=== PATIENT | male | born 1980 | race Caucasian/White ===

== ENCOUNTER 2024-07-17 09:10 | Inpatient (IN) | payer SELFPAY ==
[2024-07-17] VITALS (47 sets, daily range): BP systolic 131–182; BP diastolic 82–131; PULSE 64–112; RESP 11–23; TEMP 36.4–36.8; O2SAT 92–98; BMI 31.5; BMI 30.9
--- NOTE | 2024-07-17 09:25 | CT_ITS ---
WS: [id number] CTA HEAD AND NECK TECHNIQUE: Contrast enhanced CTA of the head and neck with coronal and sagittal reformatted images an d maximum intensity projection (MIP) images. NASCET criteria utilized. CLINICAL INFORMATION: Acute left-sided CVA COMPARISON: None. DLP: 555.[address] scans at [facility] use at least one of these dose optimization techniques: automated e xposure control; mA and/or kV adjustment per patient size (includes targeted exams where dose is matc hed to clinical indication); or iterative reconstruction. FINDINGS: RIGHT: RIGHT common carotid artery is patent. No significant RIGHT ICA stenosis. RIGHT ICA is patent to the skull base. LEFT: LEFT common carotid artery is patent. No significant LEFT ICA stenosis. LEFT ICA is patent to t he skull base. Codominant and patent vertebral arteries bilaterally. Normal vascularity to the [address] [employer] territory bilater ally. Both ICAs are patent at the skull base. Normal vascularity to the JAH and MCA territories bilaterally . No evidence of proximal flow-limiting stenosis or aneurysm. Patent anterior communicating artery. S ome images degraded by venous contamination. Lung apices are well aerated. Normal caliber thoracic aorta. A few tiny thyroid nodules. Mild spondyl itic changes cervical spine. CT/CT angio headneck* [id number] IMPRESSION: 1. No significant cervical ICA stenosis 2. Codominant and patent vertebral arteries. 3. No flow-limiting intracranial stenosis.
--- NOTE | 2024-07-17 09:25 | XRR_ITS ---
PROCEDURE INFORMATION: Exam: XR Chest Exam date and time: 07/17/2024 9:42 AM Age: 44 years old Clinical indication: Other: Left sided weakness; Additional info: Acute CVA TECHNIQUE: Imaging protocol: Radiologic exam of the chest. Views: 1 view. COMPARISON: CT angio headneck* [id number] 07/17/2024 9:34 AM FINDINGS: Lungs: Unremarkable. No consolidation or mass. Pleural spaces: Unremarkable. No pleural effusion. No pneumothorax. Heart/Mediastinum: Unremarkable. No cardiomegaly. Bones/joints: Unremarkable. XR/XR chest 1V portable [id number] IMPRESSION: No acute findings.
--- NOTE | 2024-07-17 09:26 | CT_ITS ---
WS: [id number] CT HEAD TECHNIQUE: Noncontrast CT of the head obtained from the skullbase to the vertex. CLINICAL INFORMATION: Symptoms of acute stroke COMPARISON: None. DLP: [address] scans at [facility] use at least one of these dose optimization techniques: automated e xposure control; mA and/or kV adjustment per patient size (includes targeted exams where dose is matc hed to clinical indication); or iterative reconstruction. FINDINGS: No evidence of intracranial hemorrhage or mass effect. Ventricular system and basal cisterns are jacobo nt. No extra-axial fluid collections. No evidence of mass or mass effect. Normal liu-white different iation. Mild mucosal thickening in the ethmoid air cells. Mastoid air cells are well aerated. CT/CT head thrombolytic [id number] IMPRESSION: 1. No evidence of intracranial hemorrhage or mass effect. 2. No acute intracranial findings. Notified Chris Bro DO at 07/17/2024 9:36 AM.
--- NOTE | 2024-07-17 09:26 | ECG_ITS ---
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 Measurements Intervals [place] Rate: 91 P: 59 KS: 158 QRS: 17 QRSD: 93 T: 19 QT: 346 QTc: 427 Interpretive Statements SINUS RHYTHM POSSIBLE LEFT ATRIAL ENLARGEMENT [-0.1mV P-WAVE IN V1/V2] No previous ECG available for comparison Electronically Signed On 07-17-2024 23:03:35 CDT by Purnima Castañeda M.D. [email or web address]
--- NOTE | 2024-07-17 09:27 | ED_ITS ---
HPI - Neuro Symptoms/Deficit 2 General: Chief Complaint: Neuro Symptoms/Deficit Stated Complaint: stroke like symptoms Time Seen by Provider: 07/17/24 09:12 History of Present Illness: 44-year-old male presents emergency room complaining of weakness on his right side his symptoms began last night. States his left arm and leg feel like they are asleep no previous history of stroke he is not on anticoagulants his last known well was 8 PM last evening presents today at around 910. He denies any chest pain. No difficulty speech swallowing or vision is initial NIH is 3 Associated symptoms: Deny chest pain Related Data Home Medications Medication Instructions Recorded Confirmed No Known Home Medications 07/17/24 07/17/24 Allergies Allergy/AdvReac Type Severity Reaction Status Date / Time No Known Allergies Allergy Verified 07/17/24 09:20 Review of Systems 2 Const: Denies: fever(s) or chills Card: Denies: chest pain Resp: Denies: dyspnea GI: Denies: abdominal pain : Denies: dysuria, urinary frequency or urinary urgency Musc: Denies: neck pain or back pain Skin/Breast: Denies: rash PFSH ED 2 PFSH: Medical History (Updated 07/17/24 @ 13:55 by Chris Bro DO) DJD (degenerative joint disease) Chronic back pain Tobacco dependence Family History Other CAD (coronary artery disease) Diabetes Social History (Updated 07/17/24 @ 12:09 by Primo Santoyo MD) Smoking and tobacco/nicotine status: current every day tobacco/nicotine user Alcohol intake: former Substance/Drug Use: former NIH stroke score 2 NIHSS: Level Of Consciousness - 1a: 0 Level Of Consciousness Questions - 1b: Both Correct Level Of Consciousness Commands - 1c: Both Correct Best Gaze - 2: Normal Visual Gutierrez - 3: No Visual Loss Facial Palsy - 4: N ormal Motor Arm Right - 5: No Drift Motor Arm Left - 5: Drift Motor Leg Right - 6: No Drift Motor Leg Left - 6: Drift Limb Ataxia - 7: Absent S ensory - 8: Mild To Moderate Loss Best Language - 9: No Aphasia Dysarthia - 10: Normal Extinction And Inattention - 11: 0 Score: Total Score: 3 Physical Exam 2 Const: COMMON NORMALS: no acute distress GENERAL APPEARANCE: cooperative and comfortable ORIENTATION/CONSCIOUSNESS: Yes awake, Yes oriented to person, Yes oriented to place and Yes oriented to time HENMT: COMMON NORMALS: normocephalic, atraumatic and hearing grossly normal bilaterally HEAD & SCALP: normocephalic and atraumatic Resp: COMMON NORMALS: normal respiratory effort, No retractions, No use of accessory muscles and clear to auscultation bilaterally AUSCULTATION: clear to auscultation bilaterally Cardio: COMMON NORMALS: regular rate, regular rhythm and No murmurs present (Cardio) RATE: regular rate RHYTHM: regular rhythm GI: COMMON NORMALS: Soft to palpation and No hepatosplenomegaly present A USCULTATION: Yes normoactive bowel sounds PALPATION: Yes Soft to palpation, No Tenderness to palpation present (GI), No Guarding due to palpation present (GI) and Yes No hepatosplenomegaly present Extremity: COMMON NORMALS: normal to inspection, capillary refill normal, no clubbing, cyanosis or edema, no calf tenderness and no pedal edema OTHER: Slight drift in left arm and leg decreased sensation in the left side compared to the right medical and health services manager strengths are equal bilaterally follows all commands without difficulty. Neuro: SENSORIUM/ORIENTATION: Yes oriented to person, Yes oriented to place and Yes oriented to time Skin: COMMON NORMALS: no rashes or lesions noted GENERAL SKIN EXAM: no rashes or lesions noted Course 2 Vital Signs: Vital signs: Vital Signs Temperature 98.2 F 07/17/24 09:14 Pulse Rate 76 07/17/24 13:21 Respiratory Rate 16 07/17/24 13:00 Blood Pressure 176/109 07/17/24 13:19 Pulse Oximetry 98 07/17/24 13:19 Oxygen Delivery Me thod Room Air 07/17/24 12:25 MDM - Neuro Symptoms/Deficit Medical Decision Making Patient initially presented stroke score of 3 he is outside the window for any intervention for either thrombolytics or embolectomy. Discussed Dr. Sen who is on-call for stroke. CT of the head and CTA head and neck did not show any acute abnormalities. Symptoms seem to wax and wane a little bit but he never got significantly worse to consider any intervention. Will admit for acute CVA. Discussed Dr. Santoyo orders written Medical Records I reviewed the patient's medical records. Lab Data I reviewed the patient's lab results. 07/17/24 09:35 07/17/24 09:35 Radiology Impressions Chest X-Ray 07/17/24 09:25 IMPRESSION: No acute findings. Head/Neck CTA 07/17/24 09:25 IMPRESSION: 1. No significant cervical ICA stenosis 2. Codominant and patent vertebral arteries. 3. No flow-limiting intracranial stenosis. Head CT 07/17/24 09:26 IMPRESSION: 1. No evidence of intracranial hemorrhage or mass effect. 2. No acute intracranial findings. Notified Chris Bro DO at 07/17/2024 9:36 AM. Laboratory Results WBC 9.30 10^3/uL (3.29-11.43) 07/17/24 09:35 RBC 5.90 10^6/uL (3.85-5.65) H 07/17/24 09:35 Hgb 17.40 g/dL (11.27-16.99) H 07/17/24 09:35 Hct 52.1 % (37-53) 07/17/24 09:35 MCV 88.3 fl (82-101) 07/17/24 09:35 MCH 29.5 pg (27-33) 07/17/24 09:35 MCHC 33.4 g/dL (30-55) 07/17/24 09:35 RDW 13.3 % (12.1-15.1) 07/17/24 09:35 Plt Count 185 10^3/cmm (157-399) 07/17/24 09:35 MPV 11.2 fL (7.4-10.4) H 07/17/24 09:35 Neut % (Auto) 68.6 % 07/17/24 09:35 Lymph % (Auto) 21.7 % 07/17/24 09:35 Dickson % (Auto) 7.7 % 07/17/24 09:35 Eos % (Auto) 1.2 % 07/17/24 09:35 Baso % (Auto) 0.5 % 07/17/24 09:35 Neut # (Auto) 6.37 10^3/uL (1.8-7.7) 07/17/24 09:35 Lymph # (Auto) 2.0 10^3/uL (0.8-4.8) 07/17/24 09:35 Dickson # (Auto) 0.7 10^3/uL (0.2-0.9) 07/17/24 09:35 Eos # (Auto) 0.1 10^3/uL (0.0-0.8) 07/17/24 09:35 Baso # (Auto) 0.1 10^3/uL (0.0-0.1) 07/17/24 09:35 Nucleated RBC % (auto) 0 % 07/17/24 09:35 Nucleated RBCs # 0.0 /100WBC 07/17/24 09:35 PT 12.20 SECONDS (12.1-14.9) 07/17/24 09:35 INR 0.88 (0.8-1.2) 07/17/24 09:35 APTT 27.4 SECONDS (23.9-36.7) 07/17/24 09:35 Sodium 138 mmol/L (136-145) 07/17/24 09:35 Potassium 4.2 mmol/L (3.5-5.1) 07/17/24 09:35 Chloride 102 mmol/L (98-107) 07/17/24 09:35 Carbon Dioxide 26 mmol/L (22-29) 07/17/24 09:35 Anion Gap 14.2 (5-19) 07/17/24 09:35 BUN 10 mg/dL (6-20) 07/17/24 09:35 Creatinine 1.2 mg/dL (0.7-1.2) 07/17/24 09:35 GFR Calculation 66.1 mL/min (90-130) L 07/17/24 09:35 Glucose 114 mg/dL (65-115) 07/17/24 09:35 POC Glucose 134 mg/dL (70-110) H 07/17/24 09:46 Calculated Osmolality 286 mOsm/kg (285-295) 07/17/24 09:35 Calcium 9.6 mg/dL (8.5-10.5) 07/17/24 09:35 Total Bilirubin 0.4 mg/dL (0.15-1.2) 07/17/24 09:35 AST 33 U/L (0-40) 07/17/24 09:35 ALT 40 U/L (0-41) 07/17/24 09:35 Alkaline Phosphatase 76 U/L (40-130) 07/17/24 09:35 Total Protein 7.7 g/dL (6.6-8.7) 07/17/24 09:35 Albumin 4.7 g/dL (3.5-5.2) 07/17/24 09:35 Globulin 3.0 g/dL (1.3-4.6) 07/17/24 09:35 TSH 1.50 uIU/mL (0.27-4.20) 07/17/24 09:35 Urine Color Yellow (Yellow) 07/17/24 11:00 Urine Appearance Clear (CLEAR) 07/17/24 11:00 Urine pH 7.0 (5-7) 07/17/24 11:00 Ur Specific [place] 1.015 (1.005-1.030) 07/17/24 11:00 Urine Protein Negative (Negative) 07/17/24 11:00 Urine Glucose (UA) Negative (Normal) 07/17/24 11:00 Urine Ketones Negative (Negative) 07/17/24 11:00 Urine Blood Negative (Negative) 07/17/24 11:00 Urine Nitrate Negative (Negative) 07/17/24 11:00 Urine Bilirubin Negative (Negative) 07/17/24 11:00 Urine Urobilinogen 0.2 mg/dL (Negative) 07/17/24 11:00 Ur Leukocyte Esterase Negative (Negative) 07/17/24 11:00 Urine RBC 0-2 /hpf (0-2) 07/17/24 11:00 Urine WBC 0-5 /hpf (0-5) 07/17/24 11:00 Ur Squamous Epith Cells 0-5 /hpf (0-5) 07/17/24 11:00 Amorphous Sediment Not Reportable 07/17/24 11:00 Urine Bacteria None seen /hpf (NONE) 07/17/24 11:00 Hyaline Casts 0-4 /lpf H 07/17/24 11:00 Urine Opiates Screen Negative ng/mL (Negative) 07/17/24 11:00 Ur Barbiturates Screen Negative ng/mL (Negative) 07/17/24 11:00 Ur Phencyclidine Scrn Negative ng/mL (Negative) 07/17/24 11:00 Ur Amphetamines Screen Negative ng/mL (Negative) 07/17/24 11:00 U Benzodiazepines Scrn Negative ng/mL (Negative) 07/17/24 11:00 Urine Cocaine Screen Negative ng/mL (Negative) 07/17/24 11:00 U Marijuana (THC) Screen Negative ng/mL (Negative) 07/17/24 11:00 All radiology interpretation(s) finalized by discharge Discharge Plan Discharge Patient Disposition: Admitted As Inpatient Admit Provider: Primo Santoyo Clinical Impression: CVA (cerebral vascular accident), Hypertension Condition: Stable Coding Level of Care Code ED Swing Grinder for Sharona Lugo
[2024-07-17] MEDS: iohexol 350 mg/mL 500 mL Btl (per mL) IV (09:47)
[2024-07-17 09:51] LABS: Glucose Point of Care 134 mg/dL (70-110)
[2024-07-17 10:04] LABS: Basophils # 0.1 10^3/uL (0.0-0.1); Basophils % 0.5 %; Eosinophils # 0.1 10^3/uL (0.0-0.8); Eosinophils % 1.2 %; Hematocrit 52.1 % (37-53); Lymphocytes % 21.7 %; Mean Corpuscular HGB Conc 33.4 g/dL (30-55); Mean Corpuscular Hemoglobin 29.5 pg (27-33); Mean Corpuscular Volume 88.3 fl (82-101); Mean Platelet Volume 11.2 fL (7.4-10.4); Monocytes # 0.7 10^3/uL (0.2-0.9); Monocytes % 7.7 %; Neutrophils # 6.37 10^3/uL (1.8-7.7); Neutrophils % 68.6 %; Nucleated Red Blood Cells % 0 %; Platelet Count 185 10^3/cmm (157-399); Red Cell Distribution Width 13.3 % (12.1-15.1)
[2024-07-17 10:08] LABS: INR 0.88 (0.8-1.2)
[2024-07-17 10:09] LABS: Partial Thromboplastin Time 27.4 SECONDS (23.9-36.7)
[2024-07-17 10:12] LABS: Alanine Aminotransferase 40 U/L (0-41); Albumin Level 4.7 g/dL (3.5-5.2); Alkaline Phosphatase 76 U/L (40-130); Anion Gap 14.2 (5-19); Aspartate Amino Transferase 33 U/L (0-40); Blood Urea Nitrogen 10 mg/dL (6-20); Calcium 9.6 mg/dL (8.5-10.5); Carbon Dioxide 26 mmol/L (22-29); Chloride 102 mmol/L (98-107); Creatinine Clr Calc Pharmacy 96.7584; Glomerular Filtration Rate 66.1 mL/min (90-130); Glucose 114 mg/dL (65-115); Osmolality Calculated 286 mOsm/kg (285-295); Potassium 4.2 mmol/L (3.5-5.1); Sodium 138 mmol/L (136-145); Total Bilirubin 0.4 mg/dL (0.15-1.2); Total Protein 7.7 g/dL (6.6-8.7)
[2024-07-17] MEDS: aspirin 81 mg Chew Tablet 324 MG PO (10:55)
[2024-07-17 11:27] LABS: Bilirubin Urine Negative (Negative); Blood Urine Negative (Negative); Glucose Urine UA Negative (Normal); Ketones Urine Negative (Negative); Leukocyte Esterase Urine Negative (Negative); Nitrate Urine Negative (Negative); Protein Urine Negative (Negative); Specific Gravity, Urine 1.015 (1.005-1.030); Urine Appearance Clear (CLEAR); Urine Color Yellow (Yellow); Urobilinogen Urine 0.2 mg/dL (Negative)
[2024-07-17 11:32] LABS: Add Urine Microscopic? YES; Bacteria Urine None Seen /hpf; Hyaline Casts Urine 0-4 /lpf; RBC Urine 0-2 /hpf (0-2); Squamous Epithelial Cell Urine 0-5 /hpf (0-5); WBC Urine 0-5 /hpf (0-5)
[2024-07-17 11:35] LABS: Amphetamines Screen Urine Negative (Negative); Barbiturates Screen Urine Negative (Negative); Benzodiazepines Screen Urine Negative (Negative); Cocaine Screen Urine Negative (Negative); Opiate Screen Urine Negative (Negative); PCP Screen Urine Negative (Negative); THC Screen Urine Negative (Negative)
--- NOTE | 2024-07-17 11:49 | P.HP_ITS ---
Providers/Chief Complaint 2 Admitting Physician: Primo Santoyo MD Chief Complaint: stroke like symptoms History of Present Illness Dequan Gupta is a 44 year old male with history of tobacco use, who presents with numbness on the left side of his body, some difficulty walking, since around 830 the previous night. He reported this came on suddenly, when he was fixing a child's lunch. He has never had symptoms like this before. He has not recently been ill with any fever, or cough. He does not have a headache or nausea. Denies any swallowing difficulties, speech difficulties, eyesight difficulties. He reports no blood in his stool or black or tarry stools. Review of Systems 2 General: Reports: 10 or more systems reviewed and unremarkable except in HPI and below Card: Denies: chest pain Resp: Denies: dyspnea GI: Denies: abdominal pain, nausea, hematochezia or melena Medications/Allergies Home Medications Medication Instructions Recorded Confirmed Last Taken Type No Known Home Medications 07/17/24 07/17/24 Unknown History Allergies Allergy/AdvReac Type Severity Reaction Status Date / Time No Known Allergies Allergy Verified 07/17/24 09:20 PFSH Acute 2 PFSH: Medical History (Updated 07/17/24 @ 12:08 by Primo Santoyo MD) DJD (degenerative joint disease) Chronic back pain Tobacco dependence Family History Other CAD (coronary artery disease) Diabetes Social History (Updated 07/17/24 @ 12:09 by Primo Santoyo MD) Smoking and tobacco/nicotine status: current every day tobacco/nicotine user Alcohol intake: former Substance/Drug Use: former Vitals/I&O/Wt Last Vital Signs Temp 98.2 F 07/17/24 09:14 Pulse 85 07/17/24 11:00 Resp 20 H 07/17/24 11:00 BP 179/99 07/17/24 11:00 Pulse Ox 96 07/17/24 10:55 O2 Del Method Room Air 07/17/24 10:50 Weight last 48 hrs Weight 102.512 kg Physical Exam 2 Narrative: General Exam is a conversant white male, who constantly rolls the fingers on his left hand while talking. HEENT: Pupils equally round. Extraocular movements intact Neck is supple no lymphadenopathy thyromegaly Cardiovascular regular rate and rhythm without murmur Lungs clear no wheezing or crackles Abdomen is soft with positive bowel sounds. No obvious organomegaly exam was deferred Extremities no cyanosis clubbing edema, cap refill brisk Skin no rash Neuro: Gait is antalgic. He seems to fall a little bit to the left. While walking he clinches his left hand. He does not have any obvious visual field deficits. He is get subjective numbness and tingling on the left side of his body including his face, cheek and below as well as left arm and left leg. On strength testing his left arm and left leg have slight decrease in strength. It is hard to elicit any significant cerebellar signs other than perhaps his left upper extremity is somewhat shaky with [id number]. NIHSS score around 6. I do think he has a little bit of neglect, left upper extremity Data 07/17/24 09:35 07/17/24 09:35 Other Labs: PT PTT are normal LFTs are normal Calcium and albumin is normal Urinalysis negative Urine drug screen negative Chest x-ray by my review normal CTA head and neck demonstrates no significant stenosis CT head by my review no obvious bleed. Image quality is poor. EKG demonstrates sinus rhythm, normal axis, no acute changes. Biphasic P wave in V1 possibly suggesting left atrial enlargement. A&P Assessment and plan (1) CVA (cerebral vascular accident): Patient has a CVA, right hemispheric by symptomatology Continue aspirin, add Plavix, add statin Lipid profile in the morning Hemoglobin A1c in the morning Check echo Telemetry PT/OT/ST consults Overall observation currently Permissive hypertension (2) Hypertension: Blood pressure elevated Allow for permissive hypertension If still elevated in 24 hours consider initiate patient a blood pressure medication at low-dose. (3) Tobacco dependence: Encourage cessation Plan Full code Lovenox for DVT prophylaxis Attestations 2 Medical Necessity Statement*: Will require less than 2 midnight stay for evaluation and treatment of CVA Diagnoses CVA (cerebral vascular accident) I63.9 Hypertension I10 Tobacco dependence F17.200 Time Spent (min) 44
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
--- NOTE | 2024-07-17 13:21 | USCV_ITS ---
Dequan Gupta Age: 44 Gender: M : 1980 Exam Date: 07/17/2024 13:43 Ordering Phys: Primo Santoyo MD Technologist: [place] [facility] [place]: cp sob BP: 176 / 90 HR: 73 Rhythm: Sinus Technical Quality: Adequate MEASUREMENTS (Male / Female) Normal Values 2D ECHO LV Diastolic Diameter PLAX 4.4 cm 4.2 - 5.9 / 3.9 - 5.3 cm IVS Diastolic Thickness 1.0 cm 0.6 - 1.0 / 0.6 - 0.9 cm IVS Systolic Thickness 1.5 cm LVPW Diastolic Thickness 1.3 cm 0.6 - 1.0 / 0.6 - 0.9 cm LVPW Systolic Thickness 1.5 cm LVOT Diameter 2.0 cm LV Ejection Fraction 2D Teich 66.0 % LV Ejection Fraction MOD 4C 69.4 % LV Ejection Fraction MOD 2C 67.1 % LV Ejection Fraction 2C AL 67.6 % LA Diameter 3.5 cm RA Systolic Volume 4C AL 37.4 ml RA Systolic Volume 4C MOD 36.4 ml LA Sys Volume AL 42.2 cm cubed LA Sys Volume Index AL 18.6 cm cubed/m squared Aorta at Sinotubular Diameter 2.8 cm IVC Diameter 1.3 cm M-MODE LA Ao Ratio MM 0.9 AV Cusp Separation MM 2.5 cm DOPPLER AV Peak Velocity 109.0 cm/s LVOT Peak Velocity 84.0 cm/s AV Area Cont Eq vti 3.2 cm squared AV Area Cont Eq pk 2.5 cm squared MV Peak Velocity 111.0 cm/s MV Area PHT 3.3 cm squared Mitral E to A Ratio 0.8 TV Peak Velocity 149.5 cm/s TR Peak Velocity 150.0 cm/s TR Peak Gradient 9.0 mmHg TV Peak E Velocity 147.0 cm/s Right Atrial Pressure 3.0 mmHg Pulmonary Artery Systolic Pressu 12.0 mmHg PV Peak Velocity 101.0 cm/s FINDINGS Left Ventricle Left ventricle is normal in size. LV systolic function is normal with EF of 60 to 65%. No regional wall motion abnormalities are seen. Grade 1 diastolic dysfunction Right Ventricle Normal in size and function Right Atrium Normal in size Left Atrium Normal in size Mitral Valve Structurally normal mitral valve. Trace mitral regurgitaiton. Aortic Valve Structurally normal aortic valve. No significant stenosis or regurgitation. Tricuspid Valve Trace tricuspid regurgitation. Insufficient TR jet to evaluate RVSP. Pulmonic Valve Not well visualized Pericardium Normal Aorta Normal in size IVC Not well visualized CONCLUSIONS LV systolic function is normal with EF of 60-65% Grade 1 diastolic dysfunction Trace mitral regurgitation Trace tricuspid regurgitation No comparison studies are available. Evan Maria MD (Electronically Signed) Final Date: 17 July 2024 17:03 S
--- NOTE | 2024-07-17 13:56 | MR_ITS ---
WS: [id number] MRI BRAIN WITHOUT CONTRAST HISTORY: CVA COMPARISON: Noncontrast CT head 07/17/2024 TECHNIQUE: Diffusion imaging, multiplanar T1, T2 and FLAIR imaging obtained. Small acute lacunar infarct posterior RIGHT thalamus. No additional acute infarct. No intracranial he morrhage. Mild volume loss and mild small vessel ischemic changes within the white matter. No prior large frank tory infarct. No prior lacunar infarct. Ventricles and extra-axial spaces are normal. Slight ectopia of the cerebellar tonsils. No Chiari malformation. Empty sella turcica. Incomplete fus ion of the odontoid process. There is a lucency at the base of the odontoid which may be congenital o r from a prior injury. Dural venous sinuses and [place] demonstrate no abnormality on this unenhanced studies. Paranasal sinuses: Clear. Mastoid air cells: Normal. Calvarium and scalp: Intact. MR/MR head wo con* [id number] IMPRESSION: 1. Acute RIGHT thalamic lacunar infarct. No hemorrhage. 2. Mild cerebral atrophy and mild small vessel ischemic disease. 3. No hydrocephalus.
[2024-07-17] MEDS: enoxaparin 40 mg/0.4 mL Syringe SUBCUT (14:25)
[2024-07-17] MEDS: sodium chloride 0.9% 1,000 ML 100 ML IV (14:25)
[2024-07-17] MEDS: atorvastatin 40 mg Tablet PO (23:22)
[2024-07-18] MEDS: sodium chloride 0.9% 1,000 ML 100 ML IV (00:25)
[2024-07-18 00:32] LABS: Chol HDL Ratio 8.06 mg/dL (1.0-5.00); Cholesterol 250 mg/dL (0-200); HDL Cholesterol 31 mg/dL (60-100); LDL Cholesterol Calculated 152 mg/dL (50-129); Triglycerides 333 mg/dL (0-150)
[2024-07-18 01:37] LABS: Estmated Average Glucose 120; Hemoglobin A1C 5.8 % (4.0-6.0)
[2024-07-18 03:00] VITALS: BP 155/99; PULSE 83; RESP 18; TEMP 36.7; O2SAT 95
[2024-07-18 05:32] VITALS: PULSE 67
[2024-07-18 07:00] VITALS: BP 153/92; PULSE 71; RESP 16; TEMP 37.1; O2SAT 96
--- NOTE | 2024-07-18 07:49 | P.PN_ITS ---
Documented by User: MIL Cole STDGET 07/18/24 09:04 Subjective 2 Subjective: Patient still experiencing tingling/numbness on left side of body, nursing reports patient slept all day and all night yesterday. Patient says he feels more stable with sitting up and walking to the bathroom. Patient's BP decreased from admit, but still remains high. Currently waiting on MRI results to evaluate discharge. Patient denies headache, chest pain, SOB, abdominal pain, or vision changes. Vitals/I&O/Wt Last Vital Signs Temp 98.0 F 07/18/24 03:00 Pulse 67 07/18/24 05:32 Resp 18 07/18/24 03:00 BP 155/99 07/18/24 03:00 Pulse Ox 95 07/18/24 03:00 O2 Del Method Room Air 07/17/24 15:51 07/17/24 07/18/24 07/18/24 22:59 06:59 14:59 Intake Total 670 / 670 1100 / 1770 Output Total 600 / 600 450 / 1050 Balance 70 / 70 650 / 720 Weight last 48 hrs Weight 224 lb Weight 221 lb 8 oz Weight 226 lb Physical Exam 2 Neck/C-Spine: OTHER: Supple Resp: OTHER: Bilateral breath sounds, clear to auscultation, normal chest wall expansion Cardio: OTHER: Normal rate and rhythm, no murmurs, gallops, or rubs GI: OTHER: soft, nondistended, nontender with normal bowel sounds Extremity: OTHER: No edema or cyanosis Neuro: OTHER: Decreased strength in left hand still present. Still some slowing of movement on affected side. Sensation on left side of body still decreased compared to right side. Data 07/17/24 09:35 07/17/24 09:35 A&P Assessment and plan (1) CVA (cerebral vascular accident): Nima has CVA, right hemispheric by symptomatology Still waiting on MRI results Hemoglobin A1c was 5.6, higher limit of normal Lipid panel showed TG 333, Cholesterol 256, LDL 152, HDL 31 Echo showed EF 60-65%, grade 1 diastolic function with trace Mitral and Tricuspid Regurg PT/OT consults ordered Continue Aspirin, Plavix, and statin Has continued to have hypertension over 24 hours, will start on losartan 25mg QD Monitor for possible discharge (2) Hypertension: BP still elevated past 24 hours, start losartan 25mg QD (3) Tobacco dependence: Encourage cessation Plan Full code Lovenox for DVT prophylaxis Coding Level of Care Code Acute Code for Chg Fwd Diagnoses CVA (cerebral vascular accident) I63.9 Hypertension I10 Tobacco dependence F17.200 Documented by User: Primo Santoyo MD 07/18/24 10:40 Subjective 2 Medications: Reviewed: Yes Data 07/17/24 09:35 07/17/24 09:35 A&P Assessment and plan (1) CVA (cerebral vascular accident): Nima has CVA, right hemispheric by symptomatology Still waiting on MRI results Hemoglobin A1c was 5.6, higher limit of normal Lipid panel showed TG 333, Cholesterol 256, LDL 152, HDL 31 Echo showed EF 60-65%, grade 1 diastolic function with trace Mitral and Tricuspid Regurg PT/OT consults ordered Continue Aspirin, Plavix, and statin Has continued to have hypertension over 24 hours, will start on losartan 25mg QD Monitor for possible discharge after therapy evaluations (2) Hypertension: (3) Tobacco dependence: Attestations 2 Medical Necessity Statement*: Possible discharge today, depending upon therapy findings, ability to arrange for safe discharge. Coding Level of Care Code Acute Code for Chg Fwd Diagnoses CVA (cerebral vascular accident) I63.9 Hypertension I10 Tobacco dependence F17.200
[2024-07-18] MEDS: clopidogrel 75 mg Tablet PO (09:01)
[2024-07-18] MEDS: aspirin 81 mg EC Tablet PO (09:01)
[2024-07-18] MEDS: losartan 50 mg Tablet 25 MG PO (09:01)
--- NOTE | 2024-07-18 10:37 | PM.DCS ---
Discharge Providers Date of Admission: 07/17/24 11:57 Date of Discharge: July 18, 2024 Attending Provider at Admission: Primo Santoyo MD Attending Provider at Discharge: Primo Santoyo MD Diagnoses at Discharge Discharge Diagnosis (1) CVA (cerebral vascular accident): Status: Acute (2) Hypertension: Status: Acute (3) Tobacco dependence: Status: Acute Reason for Visit Reason for Visit: stroke like symptoms Hospital Course Hospital Course Patient is a 44-year-old white male who presented to the hospital with complaints of left-sided weakness, numbness and tingling. Stroke alert was called. He was not deemed to be a candidate for TNKase secondary to time of onset of symptoms, which was the night before. A CTA was performed which demonstrated no thrombus. He was placed in the hospital, given Plavix and aspirin as well as statin. Permissive hypertension was allowed. The following day he was improved, and able to ambulate with a cane. It was thought he could be discharged home, with an event monitor and follow-up with his primary care provider as well as neurology. Neurology follow-up will occur in 2 weeks. He was told to take both Plavix and aspirin, for 2 weeks and likely one of them would be discontinued at that time. He is to stop smoking. He was able to ask questions and agreed with the plan. PT, OT, ST had a chance to evaluate the patient in the hospital. Stroke education was given. Physical Exam Narrative: General Exam no distress Neck is supple Cardiovascular regular rate and rhythm Lungs clear Abdomen soft Extremities no sinus clubbing edema Neuro: Subjective numbness and tingling left side, and left-sided weakness is noted in the upper extremity and lower extremity, very slight. Discharge Data Studies Completed and Pending Completed Studies During Hospitalization Category Date Time Status CT angio headneck* 58699/[id number] Stat Cat Scan 07/17/24 09:[address] head thrombolytic 21785 Stat Cat Scan 07/17/24 09:26 Completed XR chest 1V portable [id number] Stat Exams 07/17/24 09:25 Completed MR head wo con* [id number] Routine MRI 07/17/24 13:56 Completed CV. echo complete* [id number] Routine Ultrasound 07/17/24 13:21 Completed Radiology Impressions Chest X-Ray 07/17/24 09:25 IMPRESSION: No acute findings. Head/Neck CTA 07/17/24 09:25 IMPRESSION: 1. No significant cervical ICA stenosis 2. Codominant and patent vertebral arteries. 3. No flow-limiting intracranial stenosis. Head CT 07/17/24 09:26 IMPRESSION: 1. No evidence of intracranial hemorrhage or mass effect. 2. No acute intracranial findings. Notified Chris Bro DO at 07/17/2024 9:36 AM. Head MRI 07/17/24 13:56 IMPRESSION: 1. Acute RIGHT thalamic lacunar infarct. No hemorrhage. 2. Mild cerebral atrophy and mild small vessel ischemic disease. 3. No hydrocephalus. Laboratory Results WBC 9.30 10^3/uL (3.29-11.43) 07/17/24 09:35 RBC 5.90 10^6/uL (3.85-5.65) H 07/17/24 09:35 Hgb 17.40 g/dL (11.27-16.99) H 07/17/24 09:35 Hct 52.1 % (37-53) 07/17/24 09:35 MCV 88.3 fl (82-101) 07/17/24 09:35 MCH 29.5 pg (27-33) 07/17/24 09:35 MCHC 33.4 g/dL (30-55) 07/17/24 09:35 RDW 13.3 % (12.1-15.1) 07/17/24 09:35 Plt Count 185 10^3/cmm (157-399) 07/17/24 09:35 MPV 11.2 fL (7.4-10.4) H 07/17/24 09:35 Neut % (Auto) 68.6 % 07/17/24 09:35 Lymph % (Auto) 21.7 % 07/17/24 09:35 [place] % (Auto) 7.7 % 07/17/24 09:35 Eos % (Auto) 1.2 % 07/17/24 09:35 Baso % (Auto) 0.5 % 07/17/24 09:35 Neut # (Auto) 6.37 10^3/uL (1.8-7.7) 07/17/24 09:35 Lymph # (Auto) 2.0 10^3/uL (0.8-4.8) 07/17/24 09:35 [place] # (Auto) 0.7 10^3/uL (0.2-0.9) 07/17/24 09:35 Eos # (Auto) 0.1 10^3/uL (0.0-0.8) 07/17/24 09:35 Baso # (Auto) 0.1 10^3/uL (0.0-0.1) 07/17/24 09:35 Nucleated RBC % (auto) 0 % 07/17/24 09:35 Nucleated RBCs # 0.0 /100WBC 07/17/24 09:35 PT 12.20 SECONDS (12.1-14.9) 07/17/24 09:35 INR 0.88 (0.8-1.2) 07/17/24 09:35 APTT 27.4 SECONDS (23.9-36.7) 07/17/24 09:35 Sodium 138 mmol/L (136-145) 07/17/24 09:35 Potassium 4.2 mmol/L (3.5-5.1) 07/17/24 09:35 Chloride 102 mmol/L (98-107) 07/17/24 09:35 Carbon Dioxide 26 mmol/L (22-29) 07/17/24 09:35 Anion Gap 14.2 (5-19) 07/17/24 09:35 BUN 10 mg/dL (6-20) 07/17/24 09:35 Creatinine 1.2 mg/dL (0.7-1.2) 07/17/24 09:35 GFR Calculation 66.1 mL/min (90-130) L 07/17/24 09:35 Glucose 114 mg/dL (65-115) 07/17/24 09:35 POC Glucose 134 mg/dL (70-110) H 07/17/24 09:46 Estimat Average Glucose 120 07/17/24 09:35 Hemoglobin A1c 5.8 % (4.0-6.0) 07/17/24 09:35 Calculated Osmolality 286 mOsm/kg (285-295) 07/17/24 09:35 Calcium 9.6 mg/dL (8.5-10.5) 07/17/24 09:35 Total Bilirubin 0.4 mg/dL (0.15-1.2) 07/17/24 09:35 AST 33 U/L (0-40) 07/17/24 09:35 ALT 40 U/L (0-41) 07/17/24 09:35 Alkaline Phosphatase 76 U/L (40-130) 07/17/24 09:35 Total Protein 7.7 g/dL (6.6-8.7) 07/17/24 09:35 Albumin 4.7 g/dL (3.5-5.2) 07/17/24 09:35 Globulin 3.0 g/dL (1.3-4.6) 07/17/24 09:35 Triglycerides 333 mg/dL (0-150) H 07/17/24 09:33 Cholesterol 250 mg/dL (0-200) H 07/17/24 09:33 LDL Cholesterol, Calc 152 mg/dL (50-129) H 07/17/24 09:33 HDL Cholesterol 31 mg/dL (60-100) L 07/17/24 09:33 LDL/HDL Ratio 4.90 RATIO (0.00-3.22) H 07/17/24 09:33 Cholesterol/HDL Ratio 8.06 mg/dL (1.0-5.00) H 07/17/24 09:33 TSH 1.50 uIU/mL (0.27-4.20) 07/17/24 09:35 Urine Color Yellow (Yellow) 07/17/24 11:00 Urine Appearance Clear (CLEAR) 07/17/24 11:00 Urine pH 7.0 (5-7) 07/17/24 11:00 Ur Specific [place] 1.015 (1.005-1.030) 07/17/24 11:00 Urine Protein Negative (Negative) 07/17/24 11:00 Urine Glucose (UA) Negative (Normal) 07/17/24 11:00 Urine Ketones Negative (Negative) 07/17/24 11:00 Urine Blood Negative (Negative) 07/17/24 11:00 Urine Nitrate Negative (Negative) 07/17/24 11:00 Urine Bilirubin Negative (Negative) 07/17/24 11:00 Urine Urobilinogen 0.2 mg/dL (Negative) 07/17/24 11:00 Ur Leukocyte Esterase Negative (Negative) 07/17/24 11:00 Urine RBC 0-2 /hpf (0-2) 07/17/24 11:00 Urine WBC 0-5 /hpf (0-5) 07/17/24 11:00 Ur Squamous Epith Cells 0-5 /hpf (0-5) 07/17/24 11:00 Amorphous Sediment Not Reportable 07/17/24 11:00 Urine Bacteria None seen /hpf (NONE) 07/17/24 11:00 Hyaline Casts 0-4 /lpf H 07/17/24 11:00 Urine Opiates Screen Negative ng/mL (Negative) 07/17/24 11:00 Ur Barbiturates Screen Negative ng/mL (Negative) 07/17/24 11:00 Ur Phencyclidine Scrn Negative ng/mL (Negative) 07/17/24 11:00 Ur Amphetamines Screen Negative ng/mL (Negative) 07/17/24 11:00 U Benzodiazepines Scrn Negative ng/mL (Negative) 07/17/24 11:00 Urine Cocaine Screen Negative ng/mL (Negative) 07/17/24 11:00 U Marijuana (THC) Screen Negative ng/mL (Negative) 07/17/24 11:00 Vitals Last Vital Signs Temp 98.8 F 07/18/24 07:00 Pulse 71 07/18/24 07:00 Resp 16 07/18/24 07:00 BP 153/92 07/18/24 07:00 Pulse Ox 96 07/18/24 07:00 O2 Del Method Room Air 07/18/24 07:00 Discharge Plan Discharge Patient Disposition: Home Condition: Stable Prescriptions: New clopidogrel 75 mg Tablet 75 mg PO DAILY Qty: 30 0RF aspirin 81 mg Tablet,Delayed Release (Dr/Ec) 81 mg PO DAILY Qty: 30 0RF atorvastatin 40 mg Tablet 40 mg PO BEDTIME Qty: 30 0RF losartan 50 mg Tablet 25 mg PO DAILY Qty: 15 0RF Discharge Orders: Discharge Order (Routine); Ordered 07/18/24 Ordered By: Primo Santoyo Other Ambulatory Orders: MCT/Event Monitor 21 Days (Routine) Timeframe: 1 Day Facility: [facility] - Location: Radiology Ordered By: Primo Santoyo Referrals: Adan Rosales MD [Physician] - 2 weeks Discharge Diet: Cardiac Discharge Activity: Increase activity as tolerated Patient Instructions: Opioid Safety Activity Restrictions/Additional Instructions: Stop smoking Take all medicine as prescribed Follow-up with primary care provider 3 to 5 days, neurology 2 weeks Event monitor on discharge Return for any concerns Discharge Attestations Time Spent in Discharge Care*: greater than 30 min Quality Metrics Clinical Quality Measures [ Cerebrovascular Accident { Contraindication to Antithrombotic: None; antithrombotic prescribed; Contraindication to Anticoagulation: Other (Not indicated); Contraindication to Statin: None; Statin prescribed;}] Coding Level of Care Code 19358 Total time (in minutes) for Discharge: 34 Diagnoses CVA (cerebral vascular accident) I63.9 Hypertension I10 Tobacco dependence F17.200
[2024-07-18 11:00] VITALS: PULSE 94; RESP 18; O2SAT 96
== END 2024-07-18 13:15 | disposition home or self-care (01) | DRG 66 ==
LOC: ER 09:35 → MEDSURG 11:57
PROVIDERS: Admitting Provider Internal Medicine; Emergency Provider Family Medicine; Visit Provider Internal Medicine
DX: I63.9 Cerebral infarction, unspecified (principal); I10 Essential (primary) hypertension; F17.200 Nicotine dependence, unspecified, uncomplicated
CPT/HCPCS: 36416; 70450; 70496; 70498; 70551; 71045; 80053; 80061; 80306; 81001; 82962; 83036; 84443; 85025; 85610; 85730; 92507; 92523; 93005; 93306; 96372; 97110; 97161; 99285; J1650; J7030